=== PATIENT | female | born 1950 | race Caucasian/White ===

== ENCOUNTER → 2022-11-24 10:42 | Outpatient (CLI) | payer MEDICARE, SELFPAY ==
--- NOTE | 2022-11-24 10:46 | DI.MRI.S_ITS ---
PROCEDURE: MR FEMUR RT WO/W CON INDICATIONS: Indeterminate schlerotic lesion on xray w pain TECHNIQUE: Noncontrast coronal T1 spin echo and STIR, sagittal T1 spin echo with fat saturation and STIR, axial T1 spin echo and T2 fast spin echo with fat saturation. After the administration of contrast, axial/sagittal/coronal T1 spin echo with fat saturation through the right thigh. COMPARISON: [facility] ([facility]), CR, XR FEMUR RT MIN 2V, 11/06/2022, 15:44. FINDINGS: Image quality: Excellent. Bones: There is moderate right hip and right knee joint osteoarthritis. No femoral fracture or dislocation. No evidence of avascular necrosis of femoral head. Subtle heterogeneous T2 hyperintense signal adjacent to posterior lateral cortex of right proximal femoral shaft at the level of lesser trochanter without associated marrow edema or cortical destruction. No abnormal periosteal reaction. The area measures up to 1.3 cm AP, 2.7 cm craniocaudal and 1.4 cm in transverse dimension. This is best seen on series 5, image 15 and series 6, image 18. After IV contrast infusion, no abnormal enhancement is noted within this area. Soft tissues: There is no enhancing soft tissue mass or drainable fluid collection. Mild edema involving right adductor josselyn muscle and right obturator externus muscle is seen suggestive of muscle strain. No other muscle or tendon signal abnormalities. No obvious labral tear is noted. IMPRESSION: 1. Ill-defined subtle heterogeneously T2 hyperintense and T1 hypointense structure within posterior lateral medullary space of right proximal femoral shaft at the level of lesser trochanter and measures up to 1.3 x 1.4 x 2.7 cm in size. No abnormal contrast enhancement is seen. 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 Radiographic follow-up is recommended. 2. Right hip and right knee joint osteoarthritis. No fracture or dislocation. No evidence of avascular necrosis of femoral head. 3. No enhancing soft tissue mass or drainable fluid collection. Suggestion of muscle strain involving right adductor josselyn muscle and right obturator externus muscle. No other muscle or tendon signal abnormalities. No obvious right hip labral tear. Dictated by: Lee Carreon M.D. on 11/25/2022 at 8:56 Approved by: Lee Carreon M.D. on 11/25/2022 at 9:10
== END ==
PROVIDERS: PCP Physician Assistant; Referring Provider Physician Assistant; Visit Provider Physician Assistant
DX: M16.11 Unilateral primary osteoarthritis, right hip (principal); M89.9 Disorder of bone, unspecified; M17.11 Unilateral primary osteoarthritis, right knee; M81.0 Age-related osteoporosis without current pathological fracture; G35 Multiple sclerosis
CPT/HCPCS: 73720

== ENCOUNTER → 2023-09-23 13:02 | Outpatient (CLI) | payer MEDICARE, SELFPAY ==
[2023-09-23 20:10] LABS: Alanine Aminotransferase 29 IU/L (<35); Albumin 4.1 g/dL (3.5-5.0); Albumin Globulin Ratio 1.6 (1.0-2.8); Alkaline Phosphatase 79 U/L (38-126); Aspartate Aminotransferase 28 IU/L (14-36); BUN Creatinine Ratio 16.7 (6-22); Bilirubin Total 0.5 mg/dL (0.2-1.3); Blood Urea Nitrogen 12 mg/dL (7-17); Calcium 9.1 mg/dL (8.4-10.2); Carbon Dioxide 28 mmol/L (22-32); Chloride 107 mmol/L (98-107); Estimated Glomerular Filt Rate > 60 mL/min (>60); Globulin 2.5 g/dL (1.7-4.1); Glucose 136 mg/dL (80-110); HEMOLYSIS 16 (0-50); Sodium 139 mmol/L (137-145); Total Protein 6.6 g/dL (6.3-8.2)
[2023-09-23 20:39] LABS: TSH w/ Reflex to FT4 1.61 uIU/mL (0.47-4.68)
== END ==
PROVIDERS: PCP Family Medicine; Visit Provider Family Medicine
DX: R53.83 Other fatigue (principal)
CPT/HCPCS: 80053; 84443